=== PATIENT | female | born 1940 | race Caucasian/White ===

== ENCOUNTER 2018-02-18 14:51 | Emergency (ER) | payer OTHER ==
[~2018-02-18] VITALS: Ht 154.9 cm; Wt 71.2 kg
[~2018-02-18 14:51] MED LIST: ALBU90OI INH; AMLO5 PO; ASPI81CH; ATOR10; COLESTIPOL PO; GABA100; HTN; Hydrocodone-Ap1 EA23 PO; LEVFLO500 PO; LEVSOD50; LEVSOD50 PO; METF500C PO; METR500 PO; NAPR500; OLME20; OMEG1CAP30; Omeprazole20 M1; PRAV20 PO; Protonix40 MG PO; ROSU10TA PO; TRADJENTA5 MG; Techlite Blood1 EACH; VICODIN 5-3001 EACH PO; [UNRECOGNIZED DRUG - OTHER]; [UNRECOGNIZED DRUG - REMARK]
[2018-02-18] MEDS ORDERED: LEVSOD50 PO (15:12)
[2018-02-18] MEDS ORDERED: ROSU10TA PO (15:12)
[2018-02-18] MEDS ORDERED: LOSA25 PO (15:13)
[2018-02-18 15:57] LABS: BASOPHILS ABSOLUTE AUTO 0.07 K/mm3 (0.00-0.23); BASOPHILS PERCENT AUTO 1 % (0-2); EOSINOPHILS ABSOLUTE AUTO 0.15 K/mm3 (0.00-0.68); EOSINOPHILS PERCENT AUTO 2 % (0-6); Hematocrit 41.5 % (33.0-51.0); Hemoglobin 13.7 g/dL (11.5-16.0); IMMATURE GRAN ABSOLUTE AUTO 0.03 K/mm3 (0.00-0.10); IMMATURE GRAN PERCENT AUTO 0 % (0-1); LYMPHOCYTES ABSOLUTE AUTO 4.27 K/mm3 (0.84-5.20); LYMPHOCYTES PERCENT AUTO 44 % (21-46); MONOCYTES ABSOLUTE AUTO 0.78 K/mm3 (0.16-1.47); MONOCYTES PERCENT AUTO 8 % (4-13); Mean Corpuscular Volume 91 fL (80-100); Mean Platelet Volume 9.1 fL (9.1-12.4); NEUTROPHILS ABSOLUTE AUTO 4.52 K/mm3 (1.96-9.15); NEUTROPHILS PERCENT AUTO 46 % (41-73); Platelet Count 350 K/mm3 (150-400); RDW Coefficient Variation 12.5 % (11.7-14.2); RDW Standard Deviation 41.4 fL (35.1-46.3); Red Blood Cell Count 4.57 M/mm3 (3.80-5.20); White Blood Cell Count 9.82 K/mm3 (4.00-11.30)
[2018-02-18 16:19] LABS: Alanine Aminotransfer (ALT/SGP 26 U/L (12-78); Albumin, Blood 3.1 g/dL (3.4-5.0); Albumin/Globulin Ratio 0.8 (0.8-1.8); Alk Phos 61 U/L (50-136); Anion Gap 9 mmol/L (6-16); Aspartate Aminotrans (AST/SGOT 26 U/L (12-37); Bilirubin, Total 0.2 mg/dL (0.1-1.0); Blood Urea Nitrogen 20 mg/dL (8-24); Bun/Creatinine Ratio 25.3 (12.0-20.0); CO2, Blood 25 mmol/L (21-32); Calcium, Blood 8.3 mg/dL (8.5-10.1); Chloride, Blood 110 mmol/L (98-108); Creatinine, Blood 0.79 mg/dL (0.40-1.00); Globulin, Blood 3.7 g/dL (2.2-4.0); Glomerular Filtration Rate >60 (60-); Glucose, Blood 105 mg/dL (70-99); Potassium, Blood 3.6 mmol/L (3.5-5.5); Sodium, Blood 144 mmol/L (136-145); Total Protein, Blood 6.8 g/dL (6.4-8.2); Troponin I <0.015 ng/mL (0.000-0.040)
== END 2018-02-18 16:53 | disposition home or self-care (01) ==
LOC: ER 14:51
PROVIDERS: Emergency Medicine
DX: R07.89 Other chest pain (principal); K21.9 Gastro-esophageal reflux disease without esophagitis; I10 Essential (primary) hypertension; Z88.0 Allergy status to penicillin; Z88.5 Allergy status to narcotic agent; Z79.899 Other long term (current) drug therapy; Z79.82 Long term (current) use of aspirin
CPT/HCPCS: 71046; 80053; 84484; 85025; 93005; 93010; 99285-25

== ENCOUNTER → 2020-08-19 | Outpatient (CLI) | payer OTHER ==
[~2020-08-19] MED LIST changes: +ACET325 PO; -GABA100; +GABA100 PO; +LEVSOD25 PO; +LOSA50 PO; +METFORMIN HCL500 M3 PO; +Nitrofurantoin100 M1 PO; +Omeprazole20 M1 PO; +PROP10 PO; +SULTRIDS PO; +[UNRECOGNIZED DRUG - OTHER] PO
== END | disposition home or self-care (01) ==
LOC: LAB SHORT 14:25 → LAB 14:25
DX: N39.0 Urinary tract infection, site not specified (principal)
CPT/HCPCS: 87077; 87086; 87186

== ENCOUNTER 2020-08-22 15:37 | Observation (INO) | payer OTHER ==
[~2020-08-22] VITALS: Ht 154.9 cm; Wt 73.5 kg
[~2020-08-22 15:37] MED LIST changes: -ACET325 PO; -GABA100 PO; -LEVSOD25 PO; -LOSA50 PO; -METFORMIN HCL500 M3 PO; -Nitrofurantoin100 M1 PO; -Omeprazole20 M1 PO; -PROP10 PO; -SULTRIDS PO; -[UNRECOGNIZED DRUG - OTHER] PO
[2020-08-22 16:42] LABS: BASOPHILS ABSOLUTE AUTO 0.14 K/mm3 (0.00-0.23); BASOPHILS PERCENT AUTO 1 % (0-2); EOSINOPHILS ABSOLUTE AUTO 0.32 K/mm3 (0.00-0.68); EOSINOPHILS PERCENT AUTO 2 % (0-6); Hematocrit 44.6 % (33.0-51.0); Hemoglobin 14.4 g/dL (11.5-16.0); IMMATURE GRAN ABSOLUTE AUTO 0.35 K/mm3 (0.00-0.10); IMMATURE GRAN PERCENT AUTO 2 % (0-1); LYMPHOCYTES PERCENT AUTO 36 % (21-46); MONOCYTES ABSOLUTE AUTO 1.51 K/mm3 (0.16-1.47); MONOCYTES PERCENT AUTO 9 % (4-13); Mean Corpuscular HGB 29.9 pg (26.0-34.0); Mean Corpuscular HGB Conc 32.3 g/dL (31.5-36.5); Mean Corpuscular Volume 93 fL (80-100); Mean Platelet Volume 9.1 fL (9.1-12.4); NEUTROPHILS ABSOLUTE AUTO 8.92 K/mm3 (1.96-9.15); NEUTROPHILS PERCENT AUTO 51 % (41-73); Platelet Count 442 K/mm3 (150-400); RDW Coefficient Variation 13.1 % (11.7-14.2); RDW Standard Deviation 44.8 fL (35.1-46.3); Red Blood Cell Count 4.81 M/mm3 (3.80-5.20); White Blood Cell Count 17.64 K/mm3 (4.00-11.30)
[2020-08-22 16:51] LABS: Alanine Aminotransfer (ALT/SGP 27 U/L (12-78); Albumin, Blood 3.5 g/dL (3.4-5.0); Albumin/Globulin Ratio 0.9 (0.8-1.8); Alk Phos 71 U/L (50-136); Anion Gap 3 mmol/L (6-16); Aspartate Aminotrans (AST/SGOT 24 U/L (12-37); Bilirubin, Total 0.4 mg/dL (0.1-1.0); Blood Urea Nitrogen 19 mg/dL (8-24); Bun/Creatinine Ratio 24.2 (12.0-20.0); CO2, Blood 29 mmol/L (21-32); Calcium, Blood 9.3 mg/dL (8.5-10.1); Chloride, Blood 109 mmol/L (98-108); Creatinine, Blood 0.78 mg/dL (0.40-1.00); Globulin, Blood 3.7 g/dL (2.2-4.0); Glomerular Filtration Rate >60 (60-); Glucose, Blood 78 mg/dL (70-99); Potassium, Blood 4.4 mmol/L (3.5-5.5); Sodium, Blood 141 mmol/L (136-145); Total Protein, Blood 7.2 g/dL (6.4-8.2)
[2020-08-22] MEDS ORDERED: Nitrofurantoin100 M1 PO (20:01)
[2020-08-22] MEDS ORDERED: LEVSOD25 PO (20:02)
[2020-08-22] MEDS ORDERED: [UNRECOGNIZED DRUG - OTHER] PO (20:02)
[2020-08-22] MEDS ORDERED: ROSU10TA PO (20:03)
[2020-08-22] MEDS ORDERED: GABA100 PO (20:03)
[2020-08-22] MEDS ORDERED: LOSA50 PO (20:03)
[2020-08-22] MEDS ORDERED: METFORMIN HCL500 M3 PO (20:04)
[2020-08-22] MEDS ORDERED: PROP10 PO (20:04)
[2020-08-22] MEDS ORDERED: Omeprazole20 M1 PO (20:04)
--- NOTE | 2020-08-23 08:09 | NUR ---
SHIFT SUMMARY: PT ADMITTED LAST NIGHT AT APPROX 2250 FOR SWELLING OF RT INDEX FINGER. ARM ELEVATED ON PILLOW AND PT GIVEN ICE PACK. PAIN BEING MANAGED WITH IBUPROFEN AND TYLENOL. IV ABX INFUSING PER EMAR. PT RESTING MOST OF SHIFT. PLAN FOR MRI AND ORTHO CONSULT THIS MORNING.
--- NOTE | 2020-08-23 15:54 | NUR ---
PT IN MRI.
--- NOTE | 2020-08-23 17:31 | NUR ---
PT HAD MRI DONE, NO SURGERY PER DR. MIRANDA, REPORTS PAIN IS TOLERABLE ON R HAND, R HAND W/ ICE AND ELEVATED ON PILLOWS, DENIES ANY NEED FOR PAIN MEDS AT THIS TIME, IV WAS LEAKING WHEN PT RETURNED FROM MRI, IV DC'D, CATH INTACT, PT WANT TO EAT DINNER FIRST BEFORE ATTMEPTING NEW IV START, DR. HOGAN IN THIS EVENING TO SEE PT, NO ACUTE CHANGES THIS SHIFT.
--- NOTE | 2020-08-24 08:15 | NUR ---
PT VSS T/O NIGHT. REDNESS AND SWELLING OT RIGHT INDEX FINGER APPEARS IMPROVED THIS AM. PT REP PAIN IMPROVED WELL. ABX CONT PER ORDERS. PT INDEP IN ROOM, IS USING CALL LIGHT FOR ASSISTANCE. REPORT GIVEN TO DAY RN.
[2020-08-24] MEDS ORDERED: ACET325 PO (12:14)
[2020-08-24] MEDS ORDERED: SULTRIDS PO (12:14)
--- NOTE | 2020-08-24 12:35 | NUR ---
R HAND ELEVATED ON PILLOWS, ICE PACK IN PLACE, REDNESS NOTED TO BE IMPROVED BUT CONT. TO HAVE SOME SWELLING ON R INDEX FINGER, UNABLE TO FLEX R INDEX FINGER OR USE R HAND, DENIES ANY NUMBNESS OR TINGLING, REPORTS PAIN IS TOLERABLE WITH IBUPROFEN AND ICE, DC ORDERS NOTED, DC INSTRUCTIONS GIVEN, VERBALIZED UNDERSTANDING, RX CALLED TO [facility] PER PT REQUEST.
== END 2020-08-24 13:35 | disposition home or self-care (01) ==
LOC: ER 15:37 → SURS 15:38
PROVIDERS: Physician Assistant; ADMIT Internal Medicine
DX: L03.011 Cellulitis of right finger (principal); N39.0 Urinary tract infection, site not specified; D72.828 Other elevated white blood cell count; T38.0X5A Adverse effect of glucocorticoids and synthetic analogues, initial encounter; E03.9 Hypothyroidism, unspecified; I10 Essential (primary) hypertension; E78.00 Pure hypercholesterolemia, unspecified; E11.9 Type 2 diabetes mellitus without complications; B96.20 Unspecified Escherichia coli [E. coli] as the cause of diseases classified elsewhere; Z87.891 Personal history of nicotine dependence; Z88.5 Allergy status to narcotic agent; Z88.0 Allergy status to penicillin; Z79.84 Long term (current) use of oral hypoglycemic drugs
CPT/HCPCS: 36415; 73223; 80053; 82947; 85025; 96365; 96366; 96367; 96372; 96375; 96376; 99284-25; A9270; A9579; G0378; J0690; J1650; J3370; J7050

== ENCOUNTER → 2022-06-19 | Outpatient (CLI) | payer OTHER ==
[~2022-06-19] MED LIST changes: +ACET325 PO; +GABA100 PO; +LEVSOD25 PO; +LOSA50 PO; +METFORMIN HCL500 M3 PO; +Nitrofurantoin100 M1 PO; +Omeprazole20 M1 PO; +PROP10 PO; +SULTRIDS PO; +[UNRECOGNIZED DRUG - OTHER] PO
== END | disposition home or self-care (01) ==
LOC: LAB SHORT 14:45 → LAB 14:45
DX: N39.0 Urinary tract infection, site not specified (principal)
CPT/HCPCS: 87077; 87086; 87186

== ENCOUNTER → 2022-09-30 | Outpatient (CLI) | payer OTHER ==
[2022-09-30 15:09] LABS: Microalb/Creat Ratio UR, Rand Unable to Calculate mg/g (0.000-30.000); Microalbumin, Random Urine <5.000 mg/L (0.000-20.000)
== END | disposition home or self-care (01) ==
LOC: LAB 11:00 → LAB SHORT 11:00
PROVIDERS: Family Medicine
DX: I10 Essential (primary) hypertension (principal)
CPT/HCPCS: 82043; 82570

== ENCOUNTER 2023-11-02 08:22 | Inpatient (IN) | payer OTHER ==
[~2023-11-02] VITALS: Ht 162.6 cm; Wt 72.2 kg
[2023-11-07 15:00] VITALS: BP 128/55
== END 2023-11-07 16:48 | disposition home health service (06) | DRG 65 ==
LOC: ER 08:22 → MEDS 13:56 → ENPENDDIS 11-04 09:47 → MEDS 11-07 16:48
PROVIDERS: ADMIT Internal Medicine
DX: I63.512 Cerebral infarction due to unspecified occlusion or stenosis of left middle cerebral artery (principal); E87.1 Hypo-osmolality and hyponatremia; R47.01 Aphasia; I10 Essential (primary) hypertension; E11.42 Type 2 diabetes mellitus with diabetic polyneuropathy; E03.9 Hypothyroidism, unspecified; K21.9 Gastro-esophageal reflux disease without esophagitis; N39.3 Stress incontinence (female) (male); E78.00 Pure hypercholesterolemia, unspecified; D72.829 Elevated white blood cell count, unspecified; G43.109 Migraine with aura, not intractable, without status migrainosus; Z88.5 Allergy status to narcotic agent; Z88.0 Allergy status to penicillin; Z79.890 Hormone replacement therapy; Z87.891 Personal history of nicotine dependence

== ENCOUNTER 2023-11-09 00:25 | Emergency (ER) | payer OTHER ==
[~2023-11-09] VITALS: Ht 167.6 cm; Wt 77.1 kg
[~2023-11-09 00:25] MED LIST changes: +ASPI81CH PO; +CLOP75 PO; +Crestor40 MG PO; +FOLI1 PO; +METTREX2.5 PO; +VALSARTAN320 MG PO
[2023-11-09 00:54] LABS: BASOPHILS ABSOLUTE AUTO 0.09 K/mm3 (0.00-0.23); BASOPHILS PERCENT AUTO 1 % (0-2); EOSINOPHILS ABSOLUTE AUTO 0.24 K/mm3 (0.00-0.68); EOSINOPHILS PERCENT AUTO 2 % (0-6); Hematocrit 45.5 % (33.0-51.0); Hemoglobin 15.2 g/dL (11.5-16.0); IMMATURE GRAN ABSOLUTE AUTO 0.07 K/mm3 (0.00-0.10); IMMATURE GRAN PERCENT AUTO 1 % (0-1); LYMPHOCYTES ABSOLUTE AUTO 4.89 K/mm3 (0.84-5.20); LYMPHOCYTES PERCENT AUTO 32 % (21-46); MONOCYTES ABSOLUTE AUTO 1.29 K/mm3 (0.16-1.47); MONOCYTES PERCENT AUTO 9 % (4-13); Mean Corpuscular HGB 30.8 pg (26.0-34.0); Mean Corpuscular HGB Conc 33.4 g/dL (31.5-36.5); Mean Corpuscular Volume 92 fL (80-100); Mean Platelet Volume 9.1 fL (9.1-12.4); NEUTROPHILS ABSOLUTE AUTO 8.62 K/mm3 (1.96-9.15); NEUTROPHILS PERCENT AUTO 57 % (41-73); Platelet Count 498 K/mm3 (150-400); RDW Coefficient Variation 13.4 % (11.7-14.2); RDW Standard Deviation 45.2 fL (35.1-46.3); Red Blood Cell Count 4.93 M/mm3 (3.80-5.20)
[2023-11-09 01:13] LABS: Albumin, Blood 3.3 g/dL (3.4-5.0); Albumin/Globulin Ratio 0.8 (0.8-1.8); Bilirubin, Total 0.6 mg/dL (0.1-1.0); Bun/Creatinine Ratio 31.2 (12.0-20.0); Creatinine, Blood 0.83 mg/dL (0.40-1.00); Globulin, Blood 3.9 g/dL (2.2-4.0); Potassium, Blood 4.4 mmol/L (3.5-5.5); Total Protein, Blood 7.2 g/dL (6.4-8.2)
[2023-11-09] MEDS ORDERED: Mag Hydrox/AL Hydrox/Simeth 30 ML UDC PO ONE (01:25)
[2023-11-09 04:15] VITALS: BP 148/63
[2023-11-09] MEDS ORDERED: ALMACONE SUSPE355 ML PO (04:21)
== END 2023-11-09 04:43 | disposition home or self-care (01) ==
LOC: ER 00:25
PROVIDERS: Emergency Medicine
DX: R07.89 Other chest pain (principal); I10 Essential (primary) hypertension; K21.9 Gastro-esophageal reflux disease without esophagitis; E78.00 Pure hypercholesterolemia, unspecified; R73.03 Prediabetes; G62.9 Polyneuropathy, unspecified; Z87.891 Personal history of nicotine dependence; Z79.82 Long term (current) use of aspirin; Z79.84 Long term (current) use of oral hypoglycemic drugs; Z79.02 Long term (current) use of antithrombotics/antiplatelets; Z79.899 Other long term (current) drug therapy; Z88.0 Allergy status to penicillin; Z88.5 Allergy status to narcotic agent
CPT/HCPCS: 71046; 80053; 84484; 85025; 93005; 93010; 99285-25; A9270